=== PATIENT | female | born 1950 | race Caucasian/White ===

== ENCOUNTER 2018-07-13 03:23 | Emergency (ER) | payer OTHER ==
[~2018-07-13] VITALS: Ht 165.1 cm; Wt 66.7 kg
[2018-07-13] MEDS ORDERED: BENADRYL25 MG PO (03:37)
--- NOTE | 2018-07-13 04:20 | ED GENERAL ADULT ---
History of Present Illness General Chief Complaint: Allergy Symptoms Stated Complaint: PT C/O ALLERGIC REACTION ,FACIAL/LIP SWELLING -SOB Source: patient Exam Limitations: no limitations Vital Signs & Intake/Output Vital Signs & Intake/Output Vital Signs Date Time Temp Pulse Resp B/P B/P Pulse O2 O2 Flow FiO2 Mean Ox Delivery Rate 07/13 0650 98.5 73 18 146/68 100 Room Air 07/13 0337 Room Air 07/13 332 98.0 76 20 175/75 98 Room Air Allergies Coded Allergies: nut - unspecified (ANAPHYLAXIS 07/13/18) Reconcile Medications diphenhydrAMINE HCl (Benadryl) 25 MG CAP 1 CAP PO QPM INSOMNIA (Reported) Triage Note: PT C/O FACIAL SWELLING. PT STATES SHE WOKE UP AT APPROX 0230 AND HER LIPS AND RIGHT CHEEK WERE SWOLLEN. +SWELLING AT THIS TIME. PT STATES SHE IS ALLERGIC TO NUTS BUT HAS NOT HAD ANY. PER PT THIS HAS HAPPENED MULTIPLE TIMES IN THE PAST AND SHE WAS MEDICATED WITH BENADRYL AND THE SWELLING WENT DOWN. PT TOOK 50MG BENADRYL PO AT APPROX 0230. PT STATES SHE DOES NOT KNOW IF THE SWELLING HAS GONE DOWN SINCE. NEG TONGUE SWELLING. PT DENIES DIFFICULTY BREATHING. LUNGS =/CLR BILAT. RESPIRATIONS NON-LABORED. SKIN WARM/DRY. A&OX3. Triage Nurses Notes Reviewed? yes HPI: 68-year-old female with food allergy to nuts resents with lip swelling was first noticed just prior to arrival. Negative for shortness of breath or feeling that her throat is closing. Took Benadryl at home with some improvement. No other signs symptoms or complaints. Past History Travel History Traveled to [place] past 21 day No Medical History Any Pertinent Medical History? see below for history Surgical History Surgical History: non-contributory Psychosocial History What is your primary language Vietnamese Tobacco Use: Never used Family History Hx Contributory? No Review of Systems Review of Systems Constitutional: Reports: no symptoms, see HPI. EENTM: Reports: no symptoms. Respiratory: Reports: no symptoms. Cardiovascular: Reports: no symptoms. GI: Reports: no symptoms. Genitourinary: Reports: no symptoms. Musculoskeletal: Reports: no symptoms. Skin: Reports: no symptoms. Neurological/Psychological: Reports: no symptoms. Hematologic/Endocrine: Reports: no symptoms. Immunologic/Allergic: Reports: no symptoms. All Other Systems: Reviewed and Negative Physical Exam Physical Exam General Appearance: well developed/nourished, comfortable Comments: Gen.: Well-nourished, well-developed, no acute respiratory distress. Head: Normocephalic, atraumatic. Eyes: Normal inspection bilaterally Ears: Normal inspection bilaterally Nose: Normal inspection Throat/mouth : Moist mucosa. Swelling of the lips without involvement of the tongue or pharynx. Neck: Supple, full range of motion, no goiter Heart: Regular rate and rhythm, no murmurs rubs or gallops Lungs: Clear to auscultation bilaterally with normal air entry, negative for stridor Chest: Nontender Back: Normal range of motion Abdomen: Soft, nontender, nondistended, normal bowel sounds Extremities: Normal range of motion grossly, equal radial pulses, no cyanosis clubbing or edema Neurologic: Cranial nerves grossly intact, speech is clear Skin: warm and dry Psychiatric: Calm, cooperative, no apparent delusions or hallucinations Core Measures ACS in differential dx? No CVA/TIA Diagnosis: No Sepsis Present: No Sepsis Focused Exam Completed? No Progress Differential Diagnoses I considered the following diagnoses in my evaluation of the patient: Allergic reaction versus angioedema Plan of Care: Current Medications Sig/L[place]ne Start time Last Medication Dose Stop Time Status Admin Diphenhydramine HCl 25 MG ONCE ONE 07/13 0545 UNVr 07/13 (Benadryl) 07/13 0546 0552 Initial ED EKG: none Comments: 4:40 am: Mild improvement of lip swelling. 5:30 am: Improvement of bottom lip, upper lip continues to be swollen. 6:21 am: Improvement of upper lip. Departure Departure Disposition: HOME OR SELF CARE Condition: Stable Clinical Impression Primary Impression: Allergic reaction Qualifiers: Encounter type: initial encounter Qualified Code: T78.40XA - Allergy, unspecified, initial encounter Referrals: Myles Fuentes MD (PCP/Family) Departure Forms: Customer Survey General Discharge Information Comments Please note that there might be incidental findings in your evaluation that are unrelated to the current emergency department visit. Please notify your primary care doctor about this emergency department visit in order to obtain and review all of the testing performed so that these incidental findings can be monitored as needed. If you had an x-ray performed, please understand that some fractures may not be seen on the initial set of x-rays. If your symptoms persist you might need a repeat set of x-rays to check for such a fracture. If you had a laceration evaluated, please understand that foreign bodies such as glass or wood may not be visible to the naked eye or on plain x-rays. If the wound becomes red, swollen, increasingly more painful or if there is any drainage from the wound, please have it reevaluated by a physician for the possibility of a retained foreign body. If you're unable to follow up as outlined in the discharge instructions please return to the emergency department. Critical Care Note Critical Care Note Critical Care Time: non-applicable
[2018-07-13 06:50] VITALS: BP 146/68
== END 2018-07-13 07:00 ==
LOC: ERH 03:23
DX: T78.40XA Allergy, unspecified, initial encounter (principal)
CPT/HCPCS: 96361; 96374; 96375; J1200